=== PATIENT | male | born 1990 | race Caucasian/White ===

== ENCOUNTER 2018-09-27 16:50 | Emergency (ER) | payer OTHER ==
[2018-09-27 17:22] VITALS: BP 129/73; PULSE 67; TEMP 98.1; BMI 42.2
[2018-09-27] MEDS ORDERED: KETOROLAC TROMETHAMINE 60 MG/2 ML VIAL IM ONE (18:24)
[2018-09-27] MEDS ORDERED: CYCLOBENZAPRINE HCL 10 MG TABLET (FP) PO ONE (18:25)
--- NOTE | 2018-09-27 18:28 | PDOC ---
History of Present Illness - General History Source: Patient Exam Limitations: No Limitations - History of Present Illness Initial Comments: 09/27/18 18:35 The patient is a 28-year-old male, with no past medical history, who presents to the ED with 1 month of LT-sided lower back pain. The patient states his pain acutely exacerbated around 4 PM today and he was unable to walk. Patients coworker drove him to the ED. He denies any recent trauma or strenuous activity. He describes the pain as constant, stabbing in sensation, nonradiating , with no associated symptoms. The patient denies fevers, chills, nausea, vomiting, diarrhea, or abdominal pain. Denies any shortness of breath, palpitations, or chest pain. Denies any other symptoms. Allergies: General anesthesia. Social History: Social drinker. Denies any tobacco or drug use. Surgical History: Gastric sleeve, gastric bypass, cholecystectomy. <Fanta Rojas - Last Filed: 09/27/18 18:43> <Hu Zhang - Last Filed: 09/27/18 18:55> - General Chief Complaint: Back Pain Stated Complaint: LOWER BACK PAIN Time Seen by Provider: 09/27/18 16:56 Past History <Fanta Rojas - Last Filed: 09/27/18 18:43> - Past Medical History COPD: No - Surgical History Cholecystectomy: Yes Gastric Stapling: (BYPASS,SLEEVE) - Suicide/Smoking/Psychosocial Hx Smoking History: Never smoked Have you smoked in the past 12 months: No Information on smoking cessation initiated: No Hx Alcohol Use: No Drug/Substance Use Hx: No <Hu Zhang - Last Filed: 09/27/18 18:55> - Past Medical History Allergies/Adverse Reactions: Allergies Allergy/AdvReac Type Severity Reaction Status Date / Time No Known Allergies Allergy Verified 09/27/18 18:35 Home Medications: Ambulatory Orders Methocarbamol [Robaxin -] 750 mg PO BID #20 tablet 09/27/18 Multivitamins [Tab-A-Vit -] 1 tab PO DAILY 09/27/18 Naproxen [Naprosyn] 500 mg PO BID #20 tablet 09/27/18 Review of Systems - Review of Systems Able to Perform ROS?: Yes Comments:: 09/27/18 18:40 GENERAL/CONSTITUTIONAL: No fever or chills. No weakness. HEAD, EYES, EARS, NOSE AND THROAT: No change in vision. No ear pain or discharge. No sore throat. CARDIOVASCULAR: No chest pain or shortness of breath. RESPIRATORY: No cough, wheezing, or hemoptysis. SKIN: No rash GASTROINTESTINAL: No nausea, vomiting, diarrhea or constipation. GENITOURINARY: No dysuria, frequency, or change in urination. MUSCULOSKELETAL: (+)Left-sided lower back pain. No joint swelling or pain. No neck pain. NEUROLOGIC: No headache, vertigo, loss of consciousness, or change in strength/ sensation. ENDOCRINE: No increased thirst. No abnormal weight change. HEMATOLOGIC/LYMPHATIC: No anemia, easy bleeding, or history of blood clots. ALLERGIC/IMMUNOLOGIC: No hives or skin allergy. <Fanta Rojas - Last Filed: 09/27/18 18:43> *Physical Exam - Vital Signs Last Vital Signs Temp Pulse Resp BP Pulse Ox 98.1 F 67 20 129/73 100 09/27/18 16:51 09/27/18 16:51 09/27/18 16:51 09/27/18 16:51 09/27/18 16:51 - Physical Exam Comments: 09/27/18 18:41 GENERAL: (+)Morbidly obese. Awake, alert, and fully oriented, in no acute distress HEAD: No signs of trauma EYES: PERRLA, EOMI, sclera anicteric, conjunctiva clear ENT: Auricles normal inspection, hearing grossly normal, nares patent, oropharynx clear without exudates. Moist mucosa NECK: Normal ROM, supple, no lymphadenopathy, JVD, or masses LUNGS: Breath sounds equal, clear to auscultation bilaterally. No wheezes, and no crackles HEART: Regular rate and rhythm, normal S1 and S2, no murmurs, rubs or gallops ABDOMEN: Soft, nontender, normoactive bowel sounds. No guarding, no rebound. No masses MSK: (+)Moderate tenderness to palpation over the LT lower back. EXTREMITIES: Normal range of motion, no edema. No clubbing or cyanosis. No cords, erythema, or tenderness NEUROLOGICAL: Cranial nerves II through XII grossly intact. Normal speech. SKIN: Warm, Dry, normal turgor, no rashes or lesions noted <Fanta Rojas - Last Filed: 09/27/18 18:43> - Vital Signs Last Vital Signs Temp Pulse Resp BP Pulse Ox 98.1 F 67 20 129/73 100 09/27/18 16:51 09/27/18 16:51 09/27/18 16:51 09/27/18 16:51 09/27/18 16:51 <Hu Zhang - Last Filed: 09/27/18 18:55> *DC/Admit/Observation/Transfer - Attestations Scribe Attestion: 09/27/18 18:42 Documentation prepared by Fanta Rojas, acting as biomedical equipment tech for Hu Zhang MD. <Fanta Rojas - Last Filed: 09/27/18 18:43> - Discharge Dispostion Decision to Admit order: No <Hu Zhang - Last Filed: 09/27/18 18:55> Diagnosis at time of Disposition: Back pain Qualifiers: Back pain location: low back pain Chronicity: acute Back pain laterality: midline Sciatica presence: without sciatica Qualified Code(s): M54.5 - Low back pain - Discharge Dispostion Disposition: HOME Condition at time of disposition: Improved - Prescriptions Prescriptions: Methocarbamol [Robaxin -] 750 mg PO BID #20 tablet Naproxen [Naprosyn] 500 mg PO BID #20 tablet - Referrals Referrals: Ru Knowlse MD [Staff Physician] - Mauricio Lauren MD [Staff Physician] - - Patient Instructions Printed Discharge Instructions: Low Back Pain - Post Discharge Activity Forms/Work/School Notes: Back to Work
== END 2018-09-27 19:14 | disposition home or self-care (01) ==
LOC: FER 16:50
PROC: 3E0233Z Introduction of Anti-inflammatory into Muscle, Percutaneous Approach (ICD-10-PCS; principal; 2018-09-27)
DX: M54.5 Low back pain (principal)
CPT/HCPCS: 99283-25

== ENCOUNTER 2020-04-11 03:28 | Emergency (ER) | payer OTHER ==
[2020-04-11 03:36] VITALS: BP 159/106; PULSE 103; TEMP 98.3; BMI 44.9
[2020-04-11] MEDS ORDERED: KETOROLAC TROMETHAMINE 60 MG/2 ML VIAL ONE (03:42)
--- NOTE | 2020-04-11 03:46 | PDOC ---
History of Present Illness - General Chief Complaint: Pain Stated Complaint: LOWER BACK PAIN Time Seen by Provider: 04/11/20 03:40 History Source: Patient Exam Limitations: No Limitations - History of Present Illness Initial Comments: 04/11/20 03:42 This is a 29-year-old male with complaint of low back pain. Patient has a long history of low back pain. Patient said this is his typical low back pain but a little worse than usual. Patient otherwise denies any radiation down his legs any neurological complaints or any other symptoms Allergies: as per nursing notes Past Medical History: none Social history: Lives with family. No smoking. No alcohol. No illicit drugs. Surgical history: None General: No fevers or chills, no weakness, no weight loss HEENT: No change in vision. No sore throat,. No ear pain CardioVascular: no chest discomfort. No shortness of breath Respiratory:No cough, or wheezing. Gastrointestinal: no nausea, vomiting, diarrhea or constipation, No rectal bleeding Genitourinary: No dysuria, hematuria, or frequency Musculoskeletal: No joint or muscle pain or swelling Neurologic: No headache, vertigo, dizziness or loss of consciousness Psychiatric: nor depression Skin: No rashes or easy bruising Endocrine: no increased thirst or abnormal weight change Allergic: no skin or latex allergy All other systems reviewed and normal GENERAL: The patient is awake, alert, and fully oriented, in no acute distress. HEENT:Head is normal with no signs of trauma. Eyes: Pupils equal, round and reactive to light, Ears, and Throat are normal. Neck is supple. No Lymphadenopathy. Back: There is some tenderness on palpation of the lower back with some paraspinal spasm EXTREMITIES:atraumatic, Normal range of motion, no edema. NEUROLOGICAL: Normal speech, normal gait. PSYCH: Normal mood, normal affect. SKIN: Warm, Dry, normal turgor, no rashes or lesions noted. Assessment and plan: This is a 29-year-old male with low back pain. Plan for evaluation Toradol and prescription for Aleve was sent to his pharmacy Past History - Medical History Allergies/Adverse Reactions: Allergies Allergy/AdvReac Type Severity Reaction Status Date / Time No Known Allergies Allergy Verified 04/11/20 03:29 Home Medications: Ambulatory Orders Naproxen 500 mg PO BID #28 tablet. 04/11/20 COPD: No - Surgical History Cholecystectomy: Yes Gastric Stapling: Yes (BYPASS,SLEEVE) - Psycho-Social/Smoking History Smoking History: Never smoked Have you smoked in the past 12 months: No - Substance Abuse Hx (Audit-C & DAST Scrn) How often the patient has a drink containing alcohol: Never Score: In Men: 4 or > Positive; In Women: 3 or > Positive: 0 Screen Result (Pos requires Nsg. Audit-10AR): Negative In the last yr the pt used illegal drug/Rx for NonMed reason: No Score: Yes response is considered Positive: 0 Screen Result (Positive result requires Nsg. DAST-10): Negative *Physical Exam - Vital Signs Last Vital Signs Temp Pulse Resp BP Pulse Ox 98.3 F 103 H 18 159/106 H 100 04/11/20 03:31 04/11/20 03:31 04/11/20 03:31 04/11/20 03:31 04/11/20 03:31 Discharge - Discharge Information Problems reviewed: Yes Clinical Impression/Diagnosis: Low back pain Condition: Good Disposition: HOME - Admission No - Follow up/Referral - Patient Discharge Instructions Additional Instructions: I am sending a prescription to your pharmacy for naproxen take 1 twice a day for pain. Return to the emergency department immediately with ANY new, persistent or worsening symptoms. Continue any medications as previously prescribed by your physician. You should follow up with your primary doctor as soon as possible regarding today's emergency department visit. . Please make sure your doctor reviews the results of your emergency evaluation. Thank you for coming to the Emergency Department today for your care. It was a pleasure to see you today. Please note that your evaluation is INCOMPLETE until you follow-up with your doctor. - Post Discharge Activity
[2020-04-11] MEDS ORDERED: KETOROLAC TROMETHAMINE 60 MG/2 ML VIAL IM ONE (03:48)
--- OUTSIDE RECORDS SUMMARY | 2020-04-11 06:46 | XMS ---
:1990 Author Organization [facility] Support Name Relationship Address Phone UE Unavailable Unavailable Unavailable CHILD Unavailable [facility] [place] [address] [place] [address] [place] [address] Re-disclosure Warning The records that you are about to access may contain information from federally- assisted alcohol or drug abuse programs. If such information is present, then the following federally mandated warning applies: This information has been disclosed to you from records protected by federal confidentiality rules (42 CFR part 2). The federal rules prohibit you from making any further disclosure of this information unless further disclosure is expressly permitted by the written consent of the person to whom it pertains or as otherwise permitted by 42 CFR part 2. A general authorization for the release of medical or other information is NOT sufficient for this purpose. The Federal rules restrict any use of the information to criminally investigate or prosecute any alcohol or drug abuse patient.The records that you are about to access may contain highly sensitive health information, the redisclosure of which is protected by Article 27-F of the [facility] Public Health law. If you continue you may haveaccess to information: Regarding HIV / AIDS; Provided by facilities licensed or operated by the [facility] Office of Mental Health; or Provided by the [facility] Office for People With Developmental Disabilities. If such information is present, then the following [facility] mandated warning applies: This information has been disclosed to you from confidential records which are protected by state law. State law prohibits you from making any further disclosure of this information without the specific written consent of the person to whom it pertains, or as otherwise permitted by law. Any unauthorized further disclosure in violation of state law may result in a fine or fdc sentence or both. A general authorization for the release of medical or other information is NOT sufficient authorization for further disclosure. Insurance Providers Payer name Policy type Policy ID Covered Covered democrat's Policy P madalyn / Coverage democrat ID relationship to [employer] ormation type frye [facility] [id number] PLANS SELF PAY SP INSURANCE Results ID Date Data Source [id number] 01/11/2020 12:00:00 AM EDT [facility] Name Value Range Interpretation Code Description Data Zeny rce(s) Supporting Document(s ) SARS-CoV2 [facility] Rapid PCR This lab was ordered by [facility] and reported by [facility]. ID Date Data Source [id number] 10/21/2019 12:00:00 AM EDT [facility] Name Value Range Interpretation Code Description Data Zeny rce(s) Supporting Document(s ) 2019-nCoV [facility] RNA XXX JENNI+probe- Imp This lab [facility] and reported by [facility] Procedure
== END 2020-04-11 03:54 | disposition home or self-care (01) ==
LOC: FER 03:28
PROC: 3E0233Z Introduction of Anti-inflammatory into Muscle, Percutaneous Approach (ICD-10-PCS; principal; 2020-04-11)
DX: M54.5 Low back pain (principal)
CPT/HCPCS: 99284-25

== ENCOUNTER 2023-02-19 09:53 | Emergency (ER) | payer OTHER ==
[2023-02-19 10:06] VITALS: BP 146/82; PULSE 90; RESP 16; TEMP 98.1; BMI 46.1
[2023-02-19] MEDS ORDERED: IBUPROFEN 600 MG TABLET (FP) PO ONE ×2 (10:57→10:59)
[2023-02-19] MEDS ORDERED: IBUPROFEN 400 MG TABLET (FP) PO ONE (10:58)
[2023-02-19] MEDS: IBUPROFEN 600 MG TABLET (FP) PO ONE ×2 (10:59→11:02)
== END 2023-02-19 12:39 | disposition home or self-care (01) ==
LOC: FER 09:53
DX: M25.571 Pain in right ankle and joints of right foot (principal); M72.2 Plantar fascial fibromatosis
CPT/HCPCS: 73610-TC-RT-FY; 73630-TC-RT-FY; 99283-25